=== PATIENT | female | born 1990 | race Hispanic/Latino ===

== ENCOUNTER 2019-04-19 14:51 | Emergency (ER) | payer OTHER ==
[2019-04-19 15:07] VITALS: BMI 22.0
[2019-04-19] MEDS ORDERED: Sodium Chloride 0.9% 1,000 ML IV STA (15:29)
[2019-04-19] MEDS ORDERED: Iohexol 240 (50 ml) PO STA (15:31)
--- NOTE | 2019-04-19 15:44 | ED PDOC ---
HPI: Abdomen Time Seen by Provider: 04/19/19 15:17 Chief Complaint (Nursing): Abdominal Pain Chief Complaint (Provider): Abdominal Pain History Per: Patient History/Exam Limitations: no limitations Onset/Duration Of Symptoms: Days Current Symptoms Are (Timing): Still Present Additional Complaint(s): 28 y/o with a PMHx of Anxiety presents to the ED for evaluation of abdominal pain. Patient reports of experiencing severe lower abdominal pain yesterday at around 12 PM. Patient notes pain waxed and waned over the course of 24 hours and woke up this morning more severe and associated with a mild decrease in appetite. Patient states she has been eating fine otherwise noting of having had an omelet approximately an hour and a half prior to arrival. Patient reports of having 2 episodes of vomiting yesterday but denies any associated nausea and vomiting today. Patient notes of having her last normal bowel movement yesterday. Otherwise, patient additionally denies diarrhea, constipation, melena, hematochezia, fever, chills, urinary symptoms and vaginal complaints. Of note, patient reports of taking Ibuprofen with no relief of symptoms. PMD: Dr. Anderson in [facility] LNMP: Two weeks ago Patient states she is currently taking control pills. Abnormal Vaginal Bleeding: No Last Menstral Period: two weeks ago Past Medical History Reviewed: Historical Data, Nursing Documentation, Vital Signs Vital Signs: Last Vital Signs Temp 99.0 F 04/19/19 15:06 Pulse 88 04/19/19 15:06 Resp 18 04/19/19 15:06 BP 120/76 04/19/19 15:06 Pulse Ox 99 04/19/19 15:06 Primary Care Provider: Procedure,Nonphys - Medical History PMH: Anxiety - Surgical History Surgical History: No Surg Hx - Family History Family History: States: Other Other Family History: Cancer in the father's side - Social History Current smoker - smoking cessation education provided: No Alcohol: Social Drugs: Other (social marijuana use. no other drugs) - Home Medications Home Medications: Ambulatory Orders Medication Instructions Recorded Dicyclomine [Bentyl] 20 mg PO QID PRN #20 tab 04/19/19 Ondansetron ODT [Zofran ODT] 1 odt PO Q6 PRN #20 odt 04/19/19 traMADol [Ultram] 50 mg PO TID PRN #10 tab 04/19/19 - Allergies Allergies/Adverse Reactions: Allergies Allergy/AdvReac Type Severity Reaction Status Date / Time No Known Allergies Allergy Verified 04/19/19 15:12 Review of Systems ROS Statement: Except As Marked, All Systems Reviewed And Found Negative (as per HPI) Constitutional: Negative for: Fever, Chills Gastrointestinal: Positive for: Vomiting (yesterday, none today), Abdominal Pain, Other (decrease in appetite). Negative for: Nausea, Diarrhea, Constip ation, Melena, Hematochezia Genitourinary Female: Negative for: Dysuria, Frequency, Hematuria, Vaginal Discharge, Vaginal Bleeding Physical Exam - Reviewed Nursing Documentation Reviewed: Yes Vital Signs Reviewed: Yes - Physical Exam Appears: Positive for: Uncomfortable, In Acute Distress Head Exam: Positive for: ATRAUMATIC, NORMOCEPHALIC Skin: Positive for: Warm, Dry Eye Exam: Positive for: EOMI, PERRL ENT: Positive for: Pharynx Is (clear), Other (moist mucous membranes) Neck: Positive for: Painless ROM, Supple Cardiovascular/Chest: Positive for: Regular Rate, Rhythm. Negative for: Murmur Respiratory: Positive for: Normal Breath Sounds. Negative for: Respiratory Distress Gastrointestinal/Abdominal: Positive for: Bowel Sounds (hyperactive), Tenderness (LLQ and LUQ tenderness. No McBurney's Point Tenderness), Guarding (diffuse voluntary guarding). Negative for: Distended, Other (Millan's Sign) Back: Positive for: Normal Inspection. Negative for: L CVA Tenderness, R CVA Tenderness Extremity: Positive for: Normal ROM. Negative for: Deformity Lymphatic: Negative for: Adenopathy Neurological/Psych: Positive for: Awake, Alert. Negative for: Motor/Sensory Deficits - Laboratory Results Result Diagrams: 04/19/19 14:45 04/19/19 14:45 - ECG O2 Sat by Pulse Oximetry: 99 (RA) Pulse Ox Interpretation: Normal Medical Decision Making Medical Decision Making: Time: 1530 Impression: Left sided abdominal pain Differentials include but not limited to ovarian cyst or torsion, colitis, diverticulitis, enteritis and obstruction Plan: -- CMP -- Urine Drug Screen -- Lact Acid, Plasma -- ED Urine -- ED Urine Dipstick -- CBC with Differentials -- Bentyl 20 mg PO -- Sodium Chloride IV 1000 mls/hr -- Iohexol 50 ml PO -- Toradol 15 mg IVP -- IV Insertion -- US Transvaginal Time: 1903 US RESULTS History Left pelvic pain. Comparison None available. Technique TA/TV Findings Uterus Measures 6.5 x 4.3 x 3.3 cm. Normal in size and appearance. No fibroid or other mass lesion seen. Endometrium Measures 4.5 mm in diameter. Unremarkable. Right ovary Measures 3.3 x 1.7 x 2.6 cm. No solid mass. Normal flow. Left ovary Measures 3.6 x 2 x 1.9 cm. No solid mass. Normal flow. Free fluid No significant free fluid noted. Other Findings None. Impression Unremarkable pelvic ultrasound. Electronically signed on April 19, 2019 7:04:46 PM EDT by: Ron Thomson M.D., M.B.A., Certified By [employer] Trained MRI and CT Specialist Time: 1931 -- On re-evaluation, patient is still in pain. Morphine ordered. Time: 2144 CT of the abdomen and pelvis with contrast Clinical statement: Pain. Technique: Multiple axial CT images were obtained from the base of the lungs through the floor of the pelvis utilizing 5 mm axial slices after administration of oral and nonionic intravenous contrast. Coronal and sagittal reconstructions were also obtained. Comparison: None. Findings: Chest: The visualized lung bases are clear. Abdomen: The liver, spleen, pancreas, kidneys, gallbladder, and adrenal glands are unremarkable. The aorta is within normal limits. There is no evidence of abdominal lymphadenopathy or ascites. There is moderate bowel wall thickening and fluid distention of the small bowel. Pelvis: The colon demonstrates mild bowel wall thickening in the rectosigmoid region. The appendix is normal. The urinary bladder is within normal limits. The other pelvic structures appear grossly intact. There is no evidence of pelvic lymphadenopathy or ascites. Bones: There are no suspicious osseous abnormalities seen. Impression: 1. Moderate gastroenteritis as described. No focal evidence of obstruction. The appendix is normal. Electronically signed on April 19, 2019 9:45:06 PM EDT by: Ron Thomson M.D., M.B.A., Certified By [employer] Trained MRI and CT Specialist [id number] While in ER pt started to have diarrhea, which now correlates with CT exam findings. Stool is nonbloody nonbilious. DW pt findings and plan of care. A dvised 24-48 hour followup with PMD for reevaluation. Reviewed reasons to RTER. Pt stable for discharge. Scribe Attestation: Documented by Asad Sethi, acting as a scribe for Melodie Goel MD. Provider Scribe Attestation: All medical record entries made by the Scribe were at my direction and personally dictated by me. I have reviewed the chart and agree that the record accurately reflects my personal performance of the history, physical exam, medical decision making, and the department course for this patient. I have also personally directed, reviewed, and agree with the discharge instructions and disposition. Disposition - Clinical Impression Clinical Impression: Gastroenteritis, Abdominal pain Counseled Patient/Family Regarding: Studies Performed, Diagnosis, Need For Followup, Rx Given (d/w pt risks of narcotic medications) - Disposition Disposition Time: 21:50 Condition: STABLE Additional Instructions: FOLLOWUP WITH YOUR PRIMARY CARE DOCTOR IN 24-48 HOURS TAKE MEDICATIONS PRESCRIBED TAKE ACETAMINOPHEN AND/OR IBUPROFEN FOR PAIN. YOU ALSO HAVE BEEN PRESCRIBED OPIOID MEDICATIONS FOR PAIN. THIS PUTS YOU AT RISK FOR DEPENDENCE, ADDICTION AND OVERDOSE. PLEASE TAKE THESE ONLY SPARINGLY. Prescriptions: Dicyclomine [Bentyl] 20 mg PO QID PRN #20 tab PRN Reason: abdominal pain Ondansetron ODT [Zofran ODT] 1 odt PO Q6 PRN #20 odt PRN Reason: Nausea/Vomiting traMADol [Ultram] 50 mg PO TID PRN #10 tab PRN Reason: SEVERE PAIN ONLY Instructions: Acute Abdomen (Belly Pain), Adult (DC), Viral Gastroenteritis, Adult (DC) Forms: [facility] ED School/Work Excuse, Opioid Discharge Information
[2019-04-19 16:04] LABS: BASO % 0.5 % (0.0-2.0); EOS # 0.1 K/uL (0.0-0.7); EOS % 2.1 % (0.0-4.0); HEMOGLOBIN 13.5 g/dL (12.0-16.0); LYMPH # 1.2 K/uL (1.0-4.3); MEAN CELL VOLUME 90.8 fl (81.0-99.0); MEAN CORPUSCULAR HEMOGLOBIN 31.1 pg (27.0-31.0); MEAN CORPUSCULAR HGB CONC 34.3 g/dL (33.0-37.0); MEAN PLATELET VOLUME 8.6 fl (7.2-11.7); MONO # 0.4 K/uL (0.0-0.8); MONO % 5.8 % (0.0-10.0); NEUT # 5.2 K/uL (1.8-7.0); NEUT % 74.6 % (50.0-75.0); NRBC % 0.1 % (0.0-0.0); RBC 4.33 Mil/uL (3.80-5.20); RED CELL DISTRIBUTION WIDTH 13.5 % (11.5-14.5)
[2019-04-19 16:07] LABS: BENZODIAZEPINES, UR NEGATIVE (NEGATIVE)
[2019-04-19 16:15] LABS: BLOOD UREA NITROGEN 11 mg/dl (7-17); CALCIUM 7.6 mg/dL (8.4-10.2); GFR NON-AFRICAN AMERICAN > 60
[2019-04-19 16:29] LABS: BARBITURATES, UR NEGATIVE (NEGATIVE); OPIATES, UR NEGATIVE (NEGATIVE); PHENCYCLIDINE, UR NEGATIVE (NEGATIVE)
[2019-04-19 16:29] LABS: ALB/GLOB RATIO 1.4 (1.0-2.1); ALT/SGPT 15 U/L (9-52); AST/SGOT 43 U/L (14-36)
[2019-04-19 19:10] VITALS: BP 130/75; PULSE 74; RESP 16; TEMP 99.3
[2019-04-19 19:16] VITALS: O2SAT 99
[2019-04-19] MEDS ORDERED: Morphine 4 MG/ML VIAL IVP STA (19:31)
[2019-04-19] MEDS ORDERED: Iohexol 300 100 ML IJ ONE (20:41)
[2019-04-19] MEDS ORDERED: Sodium Chloride 0.9% 50 ML IV ONE (20:41)
--- NOTE | 2019-04-20 09:58 | US ---
Date of service: 04/19/2019 HISTORY: LEFT pelvic pain; LMP 04/12/2019 COMPARISON: None available. TECHNIQUE: Transvaginal FINDINGS: UTERUS: Measures 6.5 x 4.3 x 3.3 cm. Normal anteverted appearance. No fibroid or other mass lesion seen. ENDOMETRIUM: Measures 4.5 mm in diameter. Unremarkable. CERVIX: No cervical abnormality identified. RIGHT OVARY: Measures 3.3 x 1.7 x 2.6 cm. No solid mass. Normal flow. LEFT OVARY: Measures 2.6 x 2.0 x 1.9 cm. No solid mass. Normal flow. FREE FLUID: No significant free fluid noted. OTHER FINDINGS: Prominent cul-de-sac bowel peristalsis noted. IMPRESSION: Prominent cul-de-sac bowel peristalsis noted. Otherwise, unremarkable pelvic ultrasound. Concordant results (preliminary interpretation) provided by [email or web address].
--- NOTE | 2019-04-20 12:03 | CT ---
Date of service: 04/19/2019 PROCEDURE: CT Abdomen and Pelvis with contrast HISTORY: LUQ/LLQ abd pain COMPARISON: 2719. Pelvic ultrasound. TECHNIQUE: Intravenous contrast dose: 90 cc Omnipaque 300 Radiation dose: Total exam DLP = 236.09 mGy-cm. This CT exam was performed using one or more of the following dose reduction techniques: Automated exposure control, adjustment of the mA and/or kV according to patient size, and/or use of iterative reconstruction technique. FINDINGS: LOWER THORAX: Unremarkable. LIVER: Hepatic steatosis. No focal masses. No intrahepatic bile duct dilatation or perihepatic ascites. Hepatomegaly. GALLBLADDER AND BILE DUCTS: Unremarkable. PANCREAS: Unremarkable. No gross lesion or ductal dilatation. SPLEEN: Unremarkable. ADRENALS: Unremarkable. No mass. KIDNEYS AND URETERS: Unremarkable. No hydronephrosis. No solid mass. VASCULATURE: Unremarkable. No aortic aneurysm. No atherosclerotic calcification or mural plaque present. BOWEL: Thickening of the wall of the sigmoid and rectum consistent with mild colitis. APPENDIX: A normal appendix is visualized in it's entirety. PERITONEUM: Trace free fluid identified in the pelvis/cul de sac. No free air. LYMPH NODES: Unremarkable. No enlarged lymph nodes. BLADDER: Unremarkable. REPRODUCTIVE: Unremarkable. BONES: No acute fracture. OTHER FINDINGS: None. IMPRESSION: Unremarkable contrast enhanced CT of the abdomen and pelvis. Trace free fluid identified in the pelvis/cul de sac. Concordant results (preliminary interpretation) provided by [facility]. Procedure Completed: 20:52. Preliminary Report: Interpreted and electronically signed: 21:45. Final Interpretation: 11:59. April 20, 2019.
== END 2019-04-19 22:15 | disposition home or self-care (01) ==
LOC: H.ER 14:51
DX: K52.9 Noninfective gastroenteritis and colitis, unspecified (principal)
CPT/HCPCS: 74177; 76830; 80053; 80324; 80345; 80346; 80349; 80353; 80358; 80361; 81025; 83605; 83992; 85025; 96374; 96375; 99285; J1885; J2270; J7030; Q9966; Q9967